=== PATIENT | male | born 1965 | race Caucasian/White ===

== ENCOUNTER 2024-08-21 20:51 | Emergency (ER) | payer OTHER, SELFPAY ==
[2024-08-21 20:53] VITALS: BP 175/110
--- NOTE | 2024-08-21 22:00 | ED.GENMED ---
History of Present Illness
General
Chief Complaint: Skin Surface Trauma
Time Seen by Provider: 08/21/24 21:24
History of Present Illness
History of Present Illness:
58-year-old male presents to the emergency department for evaluation of a left thumb laceration sustained on a circular saw. Last tetanus unknown. No Distal paresthesias
Past History
Past History
ED Past Medical History: None
ED Past Surgical History: Orthopedic (Splenectomy, back surgery)
Social History
Tobacco: Smoker
Alcohol: Other
Drug: None
Personal:
Living: with family
Employment: Other
Family History
Family History: Other
Review of Systems
Review of Systems
Allergies reviewed?: Yes
All Other Systems: ROS reviewed and negative except as documented in HPI and ROS
Phy Exam
Physical Exam
Physical Exam:
GEN: Well appearing, NAD, WDWN
HEENT: Oral mucosa moist, no scleral icterus
Cardiac: Regular rate
Lung: No respiratory distress, no tachypnea
MSK: No gross deformity or injuries
Skin: Good color, no pallor or jaundice. 2 cm ragged laceration through the nailbed of the left thumb, no visible osseous tissue, no foreign bodies
Neuro: AO x3, moves all extremities freely
Psych: Calm, cooperative
Course
Orders/Labs/Results
Orders:
Orders
08/21/24 21:08
CR Hand - Left Min 3 Views Urgent
Comment:
Reason For Exam: saw vs hand
08/21/24 21:44
Tetanus/Diphth/Acelpertussis [Adacel] 0.5 ml IM .ONCE ONE
08/21/24 21:59
Cephalexin Monohydrate [Keflex] 500 mg PO NOW STA
Vital Signs
Initial and Last Documented VS:
Initial Vital Signs
Temp Pulse Resp BP Pulse Ox
98.3 F 88 20 175/110 97
08/21/24 20:53 08/21/24 20:53 08/21/24 20:53 08/21/24 20:53 08/21/24 20:53
Last Documented Vital Signs
Temp Pulse Resp BP Pulse Ox
98.3 F 74 20 148/90 98
08/21/24 20:53 08/21/24 22:11 08/21/24 20:53 08/21/24 22:11 08/21/24 22:11
Procedures
Laceration Closure
Right Thumb:
Status of Wound: dirty
Size of Wound in cm: 2
Description of Wound Edges: ragged
Preparation: cleaned with saline
Anesthesia: 1% Lidocaine with epi
Wound exploration: explored to base- no FB
Type of Closure: single layer closure
Skin Closure Material: 5-0 vicryl
Number of sutures: 6
MDM/Problems Addressed
MDM/Problems Addressed:
No evidence of fracture on plain films. Will cover with antibiotics due to contaminated nature of the wound
*Critical Care Note
Total Time (30-74mins, 75-104mins- exclusive of procedures): Not Applicable
ED Attending Note
-
Portions of this chart may have been created with voice recognition software.� Occasional wrong word or��sound alike� substitutions may have occurred due to the inherent limitations of voice recognition software.
Discharge Plan
Departure
Patient Disposition: Home (Routine Discharge)
Date of Disposition: 08/21/24
Time of Disposition: 22:02
Patient with high blood pressure during this ER visit?: No
Discharge Problem:
Laceration of left thumb
Instructions: Laceration Repair With Stitches (DC)
Prescriptions:
New
cephalexin 500 mg capsule
500 mg PO Q8H 5 Days Qty: 15 0RF
hydrocodone-acetaminophen 5-325 mg tablet
1 tab PO Q8H PRN (Reason: pain) Qty: 6 0RF
No Action
penicillin V potassium 500 mg tablet
500 mg PO QID 7 Days Qty: 28 0RF
diclofenac sodium 75 mg tablet,delayed release (DR/EC)
75 mg PO BID 5 Days Qty: 10 0RF
acetaminophen-codeine 300-30 mg Tablet
1 tab PO Q4HPRN PRN (Reason: pain) Qty: 10 0RF
lidocaine HCl [Lidocaine Viscous] 2 % solution
1 applic mucous membrane TID PRN (Reason: Pain) Qty: 100 0RF
oxycodone 5 mg tablet
5 mg PO Q4H PRN (Reason: Pain) Qty: 7 0RF
Referrals:
NONE,* [Family Provider] -
Activity Restrictions/Additional Instructions:
Keep the wound covered and dry for the next 24 hours then wash the wound daily with soap and water. The sutures are dissolvable and can be removed in 7 to 10 days typically by pulling gently on the knot and the sutures should gradually fall out.
If the sutures do not come out easily follow-up in urgent care or in the emergency department for wound check
Interventions
Interventions:
*Risk Screen - Suicide Last Done: 08/21/24 21:17
*General Assessment Last Done: 08/21/24 20:53
*Neglect/Abuse Screening Last Done: 08/21/24 21:17
*ED COVID-19 Vaccine History Last Done: 08/21/24 21:17
*Nursing Disposition Last Done: 08/21/24 22:18
ED-Skin Assessment Last Done: 08/21/24 21:17
Discharge Date and Time
Discharge Date/Time: 08/21/24 22:19
Print Language: FAROESE
[2024-08-21] MEDS: ADACEL 0.5 ML IM (22:09)
[2024-08-21] MEDS: KEFLEX 500 MG PO (22:09)
[2024-08-21 22:11] VITALS: BP 148/90
== END 2024-08-21 22:19 | disposition home or self-care (01) ==
LOC: EMR 20:51
PROVIDERS: EMERGENCY PHYSICIAN Emergency Medicine
DX: S61.012A Laceration without foreign body of left thumb without damage to nail, initial encounter (principal); W31.2XXA Contact with powered woodworking and forming machines, initial encounter; F17.200 Nicotine dependence, unspecified, uncomplicated; Z90.81 Acquired absence of spleen
CPT/HCPCS: 12001; 90471; 99283; 73130; 90715